=== PATIENT | female | born 1985 | race Caucasian/White ===

== ENCOUNTER 2016-09-27 19:26 | Emergency (ER) | payer BC, OTHER ==
[~2016-09-27] VITALS: Ht 170.2 cm; Wt 77.0 kg
[~2016-09-27 19:26] MED LIST: ERYT250 PO; FLUO-1 PO; PROT40TA PO
[2016-09-27 19:28] VITALS: BP 123/84; PULSE 84; RESP 18; TEMP 97.8
[2016-09-27] MEDS ORDERED: SODIUM CHLOR 0.9% 1000 ML INJ 1,000 ML IV SCH (20:05)
[2016-09-27] MEDS ORDERED: SODIUM CHLORIDE 0.9% FLUSH 10 ML FLUSH IV FLUSH PRN (20:15)
[2016-09-27] MEDS ORDERED: ONDANSETRON HCL 4 MG/2 ML VIAL IVP ONE (20:15)
--- NOTE | 2016-09-27 20:21 | PD ---
HPI Chief Complaint: GI Complaint Time Seen by Provider: 20:05 Travel History International Travel<30 days: No Contact w/Intl Traveler<30days: No Traveled to known affect area: No History of Present Illness HPI 31-year-old female presents to the emergency department for complaint of 2 hours of nausea vomiting diarrhea and burning epigastric pain. Patient states she's recently been exposed to a possible GI virus from her child who has similar symptoms. Patient states she's vomited approximately 10 times and had multiple diarrheal stools. Patient does not report any bilious emesis coffee- ground emesis or hematemesis. Patient does not report melena hematochezia. Patient has history of factor V Leiden deficiency, PE, depression, morbid obesity, EGD, and prior LAP-BAND with removal. Patient does not report any fever. Patient states she took a Zofran 4 mg sublingual prior to arrival to the emergency department. Patient states she did not feel that she could tolerate overnight without fluid hydration. There is also no report of well water ingestion, foreign travel, or known dietary indiscretion. Burning pain is described as 1-5/10 in intensity. PFSH Past Medical History Narrative Medical factor V Leiden deficiency, PE, depression, cardiogenic syncope, morbid obesity , EGD, prior LAP-BAND with removal; no tobacco use; nursing notes reviewed Blood Disorders: Yes (FACTOR FIVE LIDEN MUTATION) Cancer: No Cardiovascular Problems: Yes (CARDIO GENIC SYNCOPE) Endocrine: No Gastrointestinal Disorders: Yes (VOMITING SINCE SATURDAY) GERD: Yes Genitourinary: No Immune Disorder: No Musculoskeletal: No Neurologic: No Psychiatric: No Respiratory: No Thyroid Disease: No ?: Unknown LMP: unknown Past Surgical History Abdominal Surgery: Yes (LAP CHOLI IN 2002) Body Medical Devices: LAP BAND Cholecystectomy: Yes (2001) Other Surgery: Yes Social History Alcohol Use: No Tobacco Use: No Substance Use: No Allergies-Medications (Allergen,Severity, Reaction): Coded Allergies: Ancef (Verified Allergy, Intermediate, 09/27/16) Reported Meds & Prescriptions Reported Meds & Active Scripts Active Reported Lexapro (Escitalopram Oxalate) 10 Mg Tab 10 Mg PO DAILY Review of Systems Except as stated in HPI: all other systems reviewed are Neg General / Constitutional: No: Fever, Chills HENT: No: Congestion Cardiovascular: No: Chest Pain or Discomfort Respiratory: No: Shortness of Breath Gastrointestinal: Positive: Nausea, Vomiting, Diarrhea, Abdominal Pain ( epigastric burning), No: Hematemesis, Hematochezia, Loss of Appetite Genitourinary: Positive: Decreased Urinary Output, No: Dysuria, Flank Pain Musculoskeletal: No: Myalgias, Arthralgias Skin: No Rash Neurologic: No: Weakness Psychiatric: Positive: Anxiety Hematologic/Lymphatic: No: Lymph Node Enlargement Physical Exam Narrative GENERAL: Well-developed well-nourished female in no apparent respiratory distress SKIN: Warm and dry. HEAD: Normocephalic. EYES: No scleral icterus. No injection or drainage. NECK: Supple, trachea midline. No JVD or lymphadenopathy. CARDIOVASCULAR: Regular rate and rhythm without murmurs, gallops, or rubs. RESPIRATORY: Breath sounds equal bilaterally. No accessory muscle use. GASTROINTESTINAL: Abdomen soft, reproducible epigastric tenderness without guarding or rebound, nondistended. MUSCULOSKELETAL: No cyanosis, or edema. BACK: Nontender without obvious deformity. No CVA tenderness. Data Data Last Documented VS Vital Signs Date Time Temp Pulse Resp B/P Pulse Ox O2 Delivery O2 Flow Rate FiO2 09/27/16 21:20 84 16 138/72 99 Room Air 09/27/16 19:28 97.8 Orders Complete Blood Count With Diff (09/27/16 20:05) Comprehensive Metabolic Panel (09/27/16 20:05) Lipase (09/27/16 20:05) Urinalysis - C+S If Indicated (09/27/16 20:05) Iv Access Insert/Monitor (09/27/16 20:05) Ecg Monitoring (09/27/16 20:05) Oximetry (09/27/16 20:05) Ondansetron Inj (Zofran Inj) (09/27/16 20:15) Sodium Chlor 0.9% 1000 Ml Inj (Ns 1000 M (09/27/16 20:05) Sodium Chloride 0.9% Flush (Ns Flush) (09/27/16 20:15) Ed Urine Pregnancytest Poc (09/27/16 20:05) Pantoprazole Inj (Protonix Inj) (09/27/16 20:45) Labs Laboratory Tests Test 09/27/16 09/27/16 20:10 21:20 White Blood Count 5.1 TH/MM3 Red Blood Count 5.26 MIL/MM3 Hemoglobin 10.4 GM/DL Hematocrit 34.2 % Mean Corpuscular Volume 65.0 FL Mean Corpuscular Hemoglobin 19.9 PG Mean Corpuscular Hemoglobin 30.5 % Concent Red Cell Distribution Width 16.5 % Platelet Count 253 TH/MM3 Mean Platelet Volume 7.7 FL Neutrophils (%) (Auto) 86.5 % Lymphocytes (%) (Auto) 5.6 % Monocytes (%) (Auto) 6.2 % Eosinophils (%) (Auto) 0.9 % Basophils (%) (Auto) 0.8 % Neutrophils # (Auto) 4.5 TH/MM3 Lymphocytes # (Auto) 0.3 TH/MM3 Monocytes # (Auto) 0.3 TH/MM3 Eosinophils # (Auto) 0.0 TH/MM3 Basophils # (Auto) 0.0 TH/MM3 CBC Comment AUTO DIFF Differential Comment AUTO DIFF CONFIRMED Tear Drop Cells Ovalocytes 1+ Sodium Level 141 MEQ/L Potassium Level 3.6 MEQ/L Chloride Level 107 MEQ/L Carbon Dioxide Level 22.6 MEQ/L Anion Gap 11 MEQ/L Blood Urea Nitrogen 14 MG/DL Creatinine 0.78 MG/DL Estimat Glomerular Filtration 85 ML/MIN Rate Random Glucose 107 MG/DL Calcium Level 8.8 MG/DL Total Bilirubin 0.4 MG/DL Aspartate Amino Transf 22 U/L (AST/SGOT) Alanine Aminotransferase 24 U/L (ALT/SGPT) Alkaline Phosphatase 79 U/L Total Protein 8.2 GM/DL Albumin 4.2 GM/DL Lipase 94 U/L Urine Color YELLOW Urine Turbidity CLEAR Urine pH 5.5 Urine Specific Nichols 1.021 Urine Protein NEG mg/dL Urine Glucose (UA) NEG mg/dL Urine Ketones 80 OR GREATER mg/dL Urine Occult Blood MOD Urine Nitrite NEG Urine Bilirubin NEG Urine Leukocyte Esterase NEG Urine RBC 0-3 /hpf Urine WBC 0-2 /hpf Urine Transitional Epithelial 0-5 /hpf Cells Urine Mucus RARE /lpf Microscopic Urinalysis Comment CULT NOT INDICATED MDM Medical Decision Making Medical Screen Exam Complete: Yes Emergency Medical Condition: Yes Medical Record Reviewed: Yes Interpretation(s) CBC & BMP Diagram 09/27/16 20:10 Vital Signs Date Time Temp Pulse Resp B/P Pulse Ox O2 Delivery O2 Flow Rate FiO2 09/27/16 21:20 84 16 138/72 99 Room Air 09/27/16 19:28 97.8 84 18 123/84 Differential Diagnosis Gastritis, gastroenteritis, bowel obstruction, food borne illness, dehydration, electronic disturbance; also to consider pancreatitis and choledocholithiasis Narrative Course Patient was on monitor IV access obtained specimens collected and sent for resulting; 1 L normal saline bolus ordered along with Zofran 4 mg IV At 8:40 PM patient continues to complain of burning sensation in the stomach therefore Protonix 40 mg IV was added to her medications Patient resting quietly waiting for lab results Total white cell count is in normal range however automated differential is elevated at 85% neutrophils Chemistries grossly and normal range Urinalysis shows ketones otherwise grossly unremarkable; [id number] hCG negative It is 10:30 PM and patient was copiously improved sitting upright taking oral hydration and reporting desirous of being discharged to home. Patient states that she has prescription for Zofran and needs no prescription for any medications. Patient will be released for trial of outpatient clear liquid oral hydration to advance as tolerated. Patient encouraged to return to the emergency department for recurrent symptoms or fever. Patient given work excuse times one day. Diagnosis Primary Impression: Gastroenteritis Additional Impression: Dehydration Referrals: Primary Care Physician call for appointment Patient Instructions: General Instructions Departure Forms: Tests/Procedures, Work Release Special Instructions: no work x 1 day Additional Instructions: Follow clear liquid diet for next 12-24 hours advance as tolerated to bland/ Aspen diet and regular diet as tolerated Continue your prescription Zofran as needed for nausea and/or vomiting Monitor temperature every 4 hours with thermometer take as needed acetaminophen/ Tylenol every 4 hours for fever 100.4F or greater or for minor discomfort Recommend use of [id number] Prilosec daily 7 days Follow-up with primary care physician call office in a.m. to schedule follow-up appointment No work times one day Return to the emergency department for pain, fever, vomiting, or any concerns Disposition: 01 DISCHARGE HOME Condition: Stable Raya Ron MD September 27, 2016 20:21
[2016-09-27 20:27] LABS: AUTOMATED NEUTROPHIL # 4.5 TH/MM3 (1.8-7.7); BASOPHIL % 0.8 % (0.0-2.0); EOSINOPHIL % 0.9 % (0.0-4.0); HEMATOCRIT 34.2 % (35.0-46.0); LYMPH % 5.6 % (9.0-44.0); LYMPHOCYTE # 0.3 TH/MM3 (1.0-4.8); MEAN CORPUSCULAR HEMOGLOBIN 19.9 PG (27.0-34.0); MEAN CORPUSCULAR HGB CONC 30.5 % (32.0-36.0); MONO % 6.2 % (0.0-8.0); NEUT % 86.5 % (16.0-70.0); PLATELET COUNT 253 TH/MM3 (150-450); RED BLOOD COUNT 5.26 MIL/MM3 (4.00-5.30); RED CELL DISTRIBUTION WIDTH 16.5 % (11.6-17.2); WHITE BLOOD COUNT 5.1 TH/MM3 (4.0-11.0)
[2016-09-27 20:31] LABS: HEMO FLAGS AUTO DIFF
[2016-09-27 20:33] LABS: CHLORIDE 107 MEQ/L (98-107); POTASSIUM 3.6 MEQ/L (3.5-5.1); SODIUM (NA) 141 MEQ/L (136-145)
[2016-09-27 20:37] LABS: ANION GAP 11 MEQ/L (5-15); BICARBONATE 22.6 MEQ/L (21.0-32.0); BLOOD UREA NITROGEN 14 MG/DL (7-18)
[2016-09-27 20:40] LABS: ALT (GPT) 24 U/L (10-53); AST (GOT) 22 U/L (15-37); GLOMERULAR FILTRATION RATE 85 ML/MIN (>89)
[2016-09-27 20:42] LABS: TOTAL BILIRUBIN ADULT 0.4 MG/DL (0.2-1.0)
[2016-09-27 20:43] LABS: ALKALINE PHOSPHATASE 79 U/L (45-117)
[2016-09-27] MEDS ORDERED: PANTOPRAZOLE SODIUM 40 MG VIAL IV PUSH ONE (20:45)
[2016-09-27 21:02] LABS: OVALOCYTES 1+ (NORMAL)
[2016-09-27 21:03] LABS: SCAN/DIFF AUTO DIFF CONFIRMED
[2016-09-27 21:20] VITALS: BP 138/72; PULSE 84; RESP 16; O2SAT 99
[2016-09-27 21:25] LABS: GLUCOSE,URINE NEG (NEG); NITRITE,URINE NEG (NEG); PH, URINE 5.5 (5.0-8.5)
[2016-09-27] MEDS ORDERED: LEXA10TA PO (21:25)
[2016-09-27 21:29] LABS: BLOOD, URINE MOD (NEG); KETONE, URINE 80 OR GREATER mg/dL (NEG)
[2016-09-27 21:30] LABS: MUCUS URINE RARE /lpf (OCC); URINE COLOR YELLOW (YELLW/STRAW); WBC, URINE 0-2 /hpf (0-5)
[2016-09-27 21:31] LABS: COMMENT (UR) CULT NOT INDICATED; CULTURE IF INDICATED CULT NOT INDICATED; RBC, URINE 0-3 /hpf (0-3); TRANSITIONAL EPI CELLS, URINE 0-5 /hpf
== END 2016-09-27 22:44 | disposition home or self-care (01) ==
LOC: PHED 19:26
DX: K52.9 Noninfective gastroenteritis and colitis, unspecified (principal); E86.0 Dehydration; K21.9 Gastro-esophageal reflux disease without esophagitis; Z79.899 Other long term (current) drug therapy; Z88.8 Allergy status to other drugs, medicaments and biological substances
CPT/HCPCS: 80053; 81001; 83690; 84703; 85025; 96361; 96374; 96375; 99284; C9113; J2405; J7030

== ENCOUNTER 2018-02-27 20:12 | Inpatient (IN) ==
--- NOTE | 2018-02-27 20:25 | MH ---
cc: Yessy Frazier MD DATE OF ADMISSION: 02/27/2018 REASON FOR ADMISSION: A 39-4/7 week intrauterine with spontaneous rupture of membranes, prior section for trial of labor after . HISTORY OF PRESENT CONDITION: The patient is a 33-year-old female, 2, para 1-0-0-1, with LMP 07/05/2017 and EDC 03/02/2018, currently at 39-4/7 weeks by 6-week 4-day ultrasound. She came to the office today complaining of leakage of fluid and indeed was found to be spontaneously ruptured and I believe 2 cm, 90% effaced, 0 station mildly posterior. Estimated weight is 7-1/2 pounds. Her previous section was in 04/2015 and this was done at 38 weeks for breech infant, who is in good health. Her care is significant for the need of Lovenox daily until 36 weeks, after which she was switched to heparin 5000 b.i.d. The indication was pulmonary emboli x 2 postoperatively, after having her gallbladder removed. She also has a history of chronic migraine with aura. She has a history of a prolactinoma, and she has a history of hypothyroidism with her first , although her TSH has been normal. During , she has chronic insomnia. She did wean her Ambien during the time she was in our practice. Her blood type is A positive. Her hemoglobin was 12 initially. Her Pap smear is normal. She is neither immune to chickenpox nor rubella. She has never been exposed to an STD serology. Her TSH is 1.81. Her Glucola was 85. Her group B strep was negative. PAST MEDICAL HISTORY: Significant for a laparoscopic cholecystectomy in 2001. Subsequently, she underwent a PE x 2 and was found to have factor V Leiden. She has had a history of mild anemia. ALLERGIES: SHE IS ALLERGIC TO ANCEF. SOCIAL HISTORY: She does not smoke, drink or use illicit drugs. FAMILY HISTORY: Otherwise noncontributory. She has gained a total of 23 pounds. PHYSICAL EXAMINATION: GENERAL: Reveals a well-developed, well-nourished white female, in no acute distress. She is afebrile with stable vital signs. LUNGS: Clear to auscultation. HEART: Regular rate and rhythm are regular. Fundus is term. ABDOMEN: Cervix is as described. EXTREMITIES: Minimal edema and mild varicosities. Normal deep tendon reflexes. DIAGNOSTIC DATA: surveillance has been reassuring and heart rate was in the 140s in the office, and the biophysical profile showed a vertex infant with a posterior placenta and normal amniotic fluid index and biophysical profile. IMPRESSION: Term intrauterine with spontaneous rupture of membranes and a favorable cervix desirous of a trial of labor after section. Risks, benefits, expectations have been described in detail. She has signed consents and agreed to proceed. Yessy Frazier MD PPC/lc , 06:53 PM , 07:02 PM
--- NOTE | 2018-02-27 20:34 | P.OBLABOR ---
Subjective Interval history: H&P dictated continuing to leak fluid having contractions now GFM Objective Objective: Pelvic Exam: /- efw 8 pelvis clinically adequate strip was reactive in office Weeks Gestation: 39 Patient Started Active Labor: No Medical Induction of Labor: No Artificial Rupture of Membrane: No Assessment and Plan - Diagnosis (1) 39 weeks gestation of Code(s): Z3A.39 - 39 weeks gestation of Status: Acute (2) Factor V Leiden Code(s): D68.51 - Activated protein C resistance Status: Acute (3) History of pulmonary embolism Code(s): Z86.711 - Personal history of pulmonary embolism Status: Acute (4) Previous delivery affecting Code(s): O34.219 - Maternal care for unspecified type scar from previous delivery Status: Acute (5) Hyperprolactinemia Code(s): E22.1 - Hyperprolactinemia Status: Acute (6) Encounter for trial of labor Code(s): O33.9 - Maternal care for disproportion, unspecified Status: Acute (7) Spontaneous rupture of amniotic membranes Status: Acute - Plan low dose pitocin stop heparin anticipate TOLAC
[2018-02-27 22:19] LABS: Baso % (Auto) 0.4 % (0.0-2.0); Eos % (Auto) 0.4 % (0.0-4.0); Hematocrit 28.5 % (35.0-46.0); Hemoglobin 9.9 gm/dL (11.6-15.3); Lymph # (Auto) 1.3 th/mm3 (1.0-4.8); Lymph % (Auto) 16.6 % (9.0-44.0); Mean Corpuscular HGB Conc 34.7 % (32.0-36.0); Mean Corpuscular Hemoglobin 29.3 pg (27.0-34.0); Mean Corpuscular Volume 84.4 fL (80.0-100.0); Mean Platelet Volume 7.6 fL (7.0-11.0); Mono # (Auto) 0.5 th/mm3 (0.0-0.9); Mono % (Auto) 6.1 % (0.0-8.0); Neut # (Auto) 6.1 th/mm3 (1.8-7.7); Neut % (Auto) 76.5 % (16.0-70.0); Platelet Count 248 th/mm3 (150-450); Red Blood Count 3.37 mil/mm3 (4.00-5.30); Red Cell Distribution Width 13.8 % (11.6-17.2); White Blood Count 7.9 th/mm3 (4.0-11.0)
[2018-02-27 22:28] LABS: Bacteria,Urine Rare /hpf; Bilirubin,Urine Negative (Negative); Clarity,Urine Hazy (Clear); Color,Urine Yellow (Yellw/Straw); Glucose,Urine (UA) Negative (Negative); Leukocyte Esterase,Urine Small (Negative); Mucus,Urine Few /lpf (Occasional); Nitrite,Urine Negative (Negative); Specific Gravity,Urine 1.014 (1.002-1.035); Squamous Epithelial Cell,Urine 2 /hpf (0-5)
[2018-02-27 22:31] LABS: Amphetamine Urine With Conf Neg (Neg); Benzodiazepine Urine With Conf Neg (Neg)
[2018-02-27] MEDS ORDERED: Sod Chloride 0.9% Inj 1,000 ML IV.CONT PRN (23:18)
[2018-02-27] MEDS ORDERED: Sodium Chlor 0.9% Inj 500 ML IV.SIG PRN (23:18)
[2018-02-27] MEDS ORDERED: fentaNYL Citrate Inj 100 MCG/2 ML Ampul IV.PUSH PRN ×2 (23:18)
[2018-02-27] MEDS ORDERED: Oxytocin 30 Units/500ml Premix 30 UNITS/500 ML BAG IV.SIG ONE (23:18)
[2018-02-27] MEDS ORDERED: Oxytocin 30 Units/500ml Premix 30 UNITS/500 ML BAG IV.SIG PRN (23:24)
[2018-02-27] MEDS ORDERED: Citric Acid/Sodium Citrate Liq 30 ML UDC PO SCH (23:30)
[2018-02-28] MEDS ORDERED: fentaNYL 2MCG-Bupiv 0.125% Epi 150 ML EPIDURAL ONE (00:34)
[2018-02-28] MEDS ORDERED: Lidocaaine 1.5%/Epinephrine 1:200,000 PF Inj 5 ML Amp ONE (00:37)
[2018-02-28] MEDS ORDERED: Lidocaine 1% Inj 50 ML Vial ONE (03:14)
[2018-02-28] MEDS ORDERED: Bisacodyl 10 MG Supp RECTAL PRN (04:00)
[2018-02-28] MEDS ORDERED: Oxytocin 30 Units/500ml Premix 30 UNITS/500 ML BAG IV.CONT PRN (04:00)
[2018-02-28] MEDS ORDERED: Witch Hazel 50%/Glyderin 12.5% 40 Pad Jar RECTAL PRN (04:00)
[2018-02-28] MEDS ORDERED: Zolpidem Tartrate 5 MG Tablet PO PRN (04:00)
[2018-02-28] MEDS ORDERED: Naloxone Inj 0.4 MG/ML Vial IV.PUSH PRN (04:00)
[2018-02-28] MEDS ORDERED: Benzocaine 20% Top Spray 60 ML Can TOPICAL PRN (04:00)
--- NOTE | 2018-02-28 04:00 | P.OBDELI ---
Weeks Gestation: 39 Patient Started Active Labor: Yes Medical Induction of Labor: No Artificial Rupture of Membrane: No Anesthesia: Epidural Episiotomy: none Vaginal Delivery: Normal Presentation: Occiput anterior Nuchal Cord: None Delayed Cord Clamping (45 sec): Yes Placenta: Spontaneous delivery, Intact, 3 vessel cord Laceration: Perineal, 1 deg Repair: Chromic running Estimated blood loss (mL): 300 Infant: Female Infant Female A Delivery Date: 02/28/18 Infant Delivery Time: 03:59 Weight: 2.5 kg score (1 min): 9 score (5 min): 9 (resume lovenox on saturday)
[2018-02-28] MEDS ORDERED: Prenatal Vit/Ca/Iron/Folic Acid Tablet PO SCH (09:00)
[2018-02-28] MEDS: Senna/Docusate Sodium 8.6/50 MG Tablet PO SCH ×2 (09:51→21:30)
[2018-02-28] MEDS: Acetaminophen 325 MG Tablet PO PRN ×3 (09:51→21:30)
[2018-02-28] MEDS ORDERED: Diphtheria/Tetanus/Pertussis Vaccine Inj 0.5 ML Syringe IM ONE (16:00)
[2018-02-28] MEDS ORDERED: Measles/Mumps/Rubella Vaccine Inj 0.5 ML Vial SQ ONE (16:00)
[2018-03-01] MEDS: Acetaminophen 325 MG Tablet PO PRN (03:17)
[2018-03-01 09:08] VITALS: BP 122/62; PULSE 82; RESP 20; TEMP 98.1
== END 2018-03-01 11:05 | disposition home or self-care (01) ==
LOC: H2E 20:12 → H1EA 02-28 08:39
PROVIDERS: ADMIT Obstetrics & Gynecology; ATTEND Obstetrics & Gynecology